=== PATIENT | male | born 1970 | race Two or more races ===

== ENCOUNTER 2019-05-14 12:50 | Outpatient (CLI) | payer OTHER ==
[~2019-05-14] VITALS: Ht 172.7 cm; Wt 83.5 kg
[2019-05-14 13:10] VITALS: BP 129/83
[2019-05-14] MEDS ORDERED: RANITIDINE HCL150 MG ORAL (16:26)
--- NOTE | 2019-05-14 20:45 | Consultation ---
DATE OF CONSULTATION: 05/14/2019 CONSULTING PHYSICIAN: Mahendra Stanley M.D. CHIEF COMPLAINT: GERD and rectal bleeding. HISTORY OF PRESENT ILLNESS: This is a 48-year-old male with past medical history of GERD. He has been for over 4 to 5 years getting omeprazole, apparently is not working anymore. Also, the patient had few episodes of rectal bleeding. His mother was recently diagnosed with colon cancer. So, the patient was referred to us for endoscopy and colonoscopy. PAST MEDICAL HISTORY: GERD. PAST SURGICAL HISTORY: None. MEDICATIONS: Zantac and PPI. FAMILY HISTORY: Mother with colon cancer. SOCIAL HISTORY: The patient occasionally drinks. Denies any tobacco or IV drug abuse. ALLERGIES: No known drug allergies. REVIEW OF SYSTEMS: A 10-point review of systems was performed and is positive for rectal bleeding and GERD. PHYSICAL EXAMINATION: VITAL SIGNS: Temperature 98.2, blood pressure 110/83, pulse 70, and respirations 20. HEENT: Normocephalic and atraumatic. Sclerae anicteric. NECK: Supple. No evidence of obvious lymphadenopathy. CARDIOVASCULAR: Regular rate and rhythm. Plus S1 and S2. No obvious murmur. LUNGS: Clear to auscultation bilaterally. ABDOMEN: Positive bowel sounds. Soft and nontender. No rebound. No guarding. No peritoneal sign. EXTREMITIES: No cyanosis, no clubbing, no edema. ASSESSMENT AND PLAN: The patient is a 48-year-old male with chronic gastroesophageal reflux disease over 5 years, on PPI; also rectal bleeding with recent diagnosis of mother with colon cancer. We recommend endoscopy and colonoscopy. The patient was given instruction for both and prep. Risks and benefits of the procedure was explained to the patient and he agreed. We will try to get authorization for both procedures. Mahendra Stanley M.D. DR: PAU JOB#: [id number] CC:
== END 2019-05-14 15:38 | disposition home or self-care (01) ==
LOC: PAN 12:50
DX: K21.9 Gastro-esophageal reflux disease without esophagitis (principal); K62.5 Hemorrhage of anus and rectum; Z80.0 Family history of malignant neoplasm of digestive organs
CPT/HCPCS: 99202